=== PATIENT | male | born 1970 | race African-American/Black ===

== ENCOUNTER 2018-05-17 20:23 | Emergency (ER) | payer MEDICAID ==
[~2018-05-17] VITALS: Ht 172.7 cm; Wt 79.5 kg
[2018-05-17 20:33] VITALS: Ht 172.7 cm; Wt 79.5 kg
[2018-05-17 22:16] LABS: BASOPHILS 0.2 % (0-2); EOSINOPHILS 0.1 % (0-7); HEMATOCRIT 46.7 % (42.0-54.0); HEMOGLOBIN 16.5 g/dL (13.5-17.5); IMMATURE GRANULOCYTES 0.3 % (0-5); LYMPHOCYTES 6.6 % (15-50); MCH 33.8 pg (26.0-34.0); MCHC 35.3 g/dL (31.0-37.0); MCV 95.7 fL (80.0-100.0); MEAN PLATELET VOLUME 9.6 fL (7.4-10.4); MONOCYTES 8.5 % (2-11); NEUTROPHILS 84.3 % (40-80); PLATELET COUNT 148 10x3/uL (130-400); RBC 4.88 10x6/uL (4.20-6.10); RDW 16.2 % (11.5-14.5)
[2018-05-17 22:34] LABS: ALBUMIN 3.1 g/dL (3.4-5.0); ALKALINE PHOSPHATASE 84 U/L (46-116); ALT (SGPT) 20 U/L (10-68); BILIRUBIN - TOTAL 0.46 mg/dL (0.2-1.3); CALC OSMOLALITY 267 mosm/kg (275-300); CALCIUM 8.5 mg/dL (8.5-10.1); CARBON DIOXIDE 24.8 mmol/L (21.0-32.0); CHLORIDE - SERUM 98 mmol/L (98-107); CREATININE - SERUM 0.9 mg/dL (0.6-1.3); GLUCOSE 102 mg/dL (74-106); POTASSIUM - SERUM 3.8 mmol/L (3.5-5.1); PROTEIN - SERUM 8.2 g/dL (6.4-8.2); SODIUM 135 mmol/L (136-145); UREA NITROGEN 8 mg/dL (7-18); eGFR NON AFRICAN AMERICAN > 90 mL/min (90-120)
[2018-05-18 01:59] VITALS: BP 142/89
== END 2018-05-18 02:01 | disposition other institution (70) ==
LOC: D.ER 20:23
PROVIDERS: Family Medicine
DX: J36 Peritonsillar abscess (principal); R13.10 Dysphagia, unspecified